=== PATIENT | female | born 1960 | race Two or more races ===

== ENCOUNTER 2021-09-03 10:39 | Inpatient (IN) | payer MEDICAID ==
[~2021-09-03] VITALS: Ht 165.1 cm; Wt 51.3 kg
[2021-09-03] MEDS ORDERED: SODIUM CHLORIDE 0.9% 1,000 ML IV ONE ×2 (11:15→12:45)
[2021-09-03] MEDS ORDERED: CALCIUM GLUCONATE 100MG/ML 10ML VIAL IV ONE (11:15)
[2021-09-03] MEDS ORDERED: GLUCAGON,HUMAN RECOMBINANT 1MG/VIAL IV ONE (11:15)
[2021-09-03 11:46] LABS: BASOPHILS % 3.5 % (0.0-2.0); EOSINOPHILS % 5.1 % (0.0-5.0); HEMATOCRIT. 33.8 % (36.0-48.0); HEMOGLOBIN. 11.5 g/dL (12.0-16.0); LYMPHOCYTES % 26.9 % (20.0-50.0); MEAN CORPUSCULAR HEMOGLOBIN 33.4 pg (28.0-32.0); MEAN PLATELET VOLUME 6.7 fl (7.4-10.4); MONOCYTES % 5.8 % (2.0-8.0); NEUTROPHILS % 58.7 % (40.0-76.0); PLATELET 332 x1000/uL (130-400); RED BLOOD CELL COUNT 3.45 mill/uL (4.2-5.4); RED CELL DISTRIBUTION WIDTH 12.5 % (11.6-14.6)
[2021-09-03 11:52] LABS: PROTHROMBIN TIME 10.8 sec (9.6-11.0)
[2021-09-03 12:00] LABS: CHLORIDE 112 mEq/L (98-107)
[2021-09-03] MEDS ORDERED: ATROPINE SULFATE 1MG/10ML SYR IV ONE (12:30)
[2021-09-04] VITALS (32 sets, daily range): BP systolic 106–164; BP diastolic 27–94
[2021-09-04] MEDS ORDERED: BUPR200T31 PO (03:35)
[2021-09-04] MEDS ORDERED: LITHTAB MT (03:35)
[2021-09-04] MEDS ORDERED: DULO30CA52 PO (03:35)
[2021-09-04] MEDS ORDERED: LOSA50TA41 PO (03:35)
[2021-09-04] MEDS ORDERED: LEVO100T9 PO (03:35)
[2021-09-04] MEDS ORDERED: ACET-2708 PO (03:39)
[2021-09-04] MEDS ORDERED: GABA-532 PO (03:39)
[2021-09-04] MEDS ORDERED: AMLO5TAB88 PO (03:39)
[2021-09-04] MEDS: LEVOTHYROXINE SODIUM 100MCG TABLET PO SCH (08:47)
[2021-09-04 13:08] LABS: CHLORIDE 110 mEq/L (98-107)
[2021-09-04] MEDS: ENOXAPARIN 40MG/0.4ML SYR SUBCUT SCH (13:47)
[2021-09-04 14:29] LABS: BASOPHILS % 2.6 % (0.0-2.0); EOSINOPHILS % 4.9 % (0.0-5.0); HEMATOCRIT. 40.1 % (36.0-48.0); HEMOGLOBIN. 13.4 g/dL (12.0-16.0); LYMPHOCYTES % 24.6 % (20.0-50.0); MEAN CORPUSCULAR HEMOGLOBIN 33.1 pg (28.0-32.0); MEAN CORPUSCULAR VOLUME 98.8 fL (81.0-99.0); MEAN PLATELET VOLUME 7.2 fl (7.4-10.4); MONOCYTES % 5.4 % (2.0-8.0); NEUTROPHILS % 62.5 % (40.0-76.0); PLATELET 419 x1000/uL (130-400); RED BLOOD CELL COUNT 4.06 mill/uL (4.2-5.4); RED CELL DISTRIBUTION WIDTH 12.7 % (11.6-14.6)
[2021-09-04] MEDS: AMLODIPINE 5MG TABLET PO SCH (15:54)
[2021-09-05] VITALS (13 sets, daily range): BP systolic 116–171; BP diastolic 65–108
[2021-09-05] MEDS: LEVOTHYROXINE SODIUM 100MCG TABLET PO SCH (06:30)
[2021-09-05] MEDS: AMLODIPINE 5MG TABLET PO SCH (08:46)
[2021-09-05] MEDS: ENOXAPARIN 40MG/0.4ML SYR SUBCUT SCH (08:47)
[2021-09-05] MEDS ORDERED: ACETAMINOPHEN 325MG TABLET PO PRN ×3 (11:45→12:30)
[2021-09-05] MEDS: ACETAMINOPHEN 325MG TABLET PO PRN (12:34)
[2021-09-06] VITALS (7 sets, daily range): BP systolic 113–152; BP diastolic 61–96
[2021-09-06] MEDS: ACETAMINOPHEN 325MG TABLET PO PRN ×4 (01:13→16:40)
[2021-09-06] MEDS: LEVOTHYROXINE SODIUM 100MCG TABLET PO SCH (08:13)
[2021-09-06] MEDS: AMLODIPINE 10MG TABLET PO SCH (08:14)
[2021-09-06] MEDS: ENOXAPARIN 40MG/0.4ML SYR SUBCUT SCH (08:15)
[2021-09-06] MEDS: BUPROPION HCL 150MG TABLET XL 24HR PO SCH (11:30)
[2021-09-06] MEDS: ARIPIPRAZOLE 5MG TABLET PO SCH (11:30)
[2021-09-06] MEDS: GABAPENTIN 300MG CAPSULE PO SCH ×2 (11:30→16:39)
[2021-09-06] MEDS ORDERED: BUPROPION HCL 75MG TABLET PO SCH (13:00)
[2021-09-06] MEDS: LITHIUM CARBONATE 150 MG CAPSULE PO SCH ×2 (14:06→16:39)
[2021-09-06] MEDS: RISPERIDONE 1MG TABLET PO SCH (14:06)
[2021-09-06] MEDS: CYCLOBENZAPRINE 10MG TABLET PO SCH ×2 (18:45→18:53)
[2021-09-06] MEDS ORDERED: OXYCODONE HCL 5MG TABLET PO PRN (18:45)
[2021-09-07 05:55] VITALS: BP 157/86
[2021-09-07] MEDS: CYCLOBENZAPRINE 10MG TABLET PO SCH ×2 (06:13→17:41)
[2021-09-07] MEDS: ACETAMINOPHEN 325MG TABLET PO PRN (06:23)
[2021-09-07 08:00] VITALS: BP 138/79
[2021-09-07] MEDS: GABAPENTIN 300MG CAPSULE PO SCH ×2 (09:29→17:41)
[2021-09-07] MEDS: LEVOTHYROXINE SODIUM 100MCG TABLET PO SCH (09:29)
[2021-09-07] MEDS: ARIPIPRAZOLE 5MG TABLET PO SCH (09:29)
[2021-09-07] MEDS: RISPERIDONE 1MG TABLET PO SCH (09:29)
[2021-09-07] MEDS: BUPROPION HCL 150MG TABLET XL 24HR PO SCH (09:29)
[2021-09-07] MEDS: AMLODIPINE 10MG TABLET PO SCH (09:31)
[2021-09-07] MEDS: LITHIUM CARBONATE 150 MG CAPSULE PO SCH ×2 (09:32→17:39)
[2021-09-07] MEDS: ENOXAPARIN 40MG/0.4ML SYR SUBCUT SCH (09:33)
[2021-09-07 12:00] VITALS: BP 115/74
[2021-09-07 16:00] VITALS: BP 115/64
[2021-09-07 18:00] VITALS: BP 118/62
[2021-09-08] MEDS: CYCLOBENZAPRINE 10MG TABLET PO SCH (06:32)
[2021-09-08 08:00] VITALS: BP 146/90
[2021-09-08] MEDS: LEVOTHYROXINE SODIUM 100MCG TABLET PO SCH (08:41)
[2021-09-08] MEDS: BUPROPION HCL 150MG TABLET XL 24HR PO SCH (08:41)
[2021-09-08] MEDS: LITHIUM CARBONATE 150 MG CAPSULE PO SCH (08:42)
[2021-09-08] MEDS: ARIPIPRAZOLE 5MG TABLET PO SCH (08:42)
[2021-09-08] MEDS: GABAPENTIN 300MG CAPSULE PO SCH (08:44)
[2021-09-08] MEDS: AMLODIPINE 10MG TABLET PO SCH (08:44)
[2021-09-08] MEDS: ENOXAPARIN 40MG/0.4ML SYR SUBCUT SCH (08:45)
[2021-09-08] MEDS: RISPERIDONE 1MG TABLET PO SCH (08:51)
[2021-09-08] MEDS ORDERED: NALOXONE HCL 0.4MG/ML VIAL IV PRN (15:45)
[2021-09-08 16:00] VITALS: BP 111/70
[2021-09-08 16:34] VITALS: BP 111/70
== END 2021-09-08 17:53 | disposition home or self-care (01) | DRG 812 ==
LOC: ER 10:39 → EDBEDREQ 14:34 → EDBEDREQTM 14:34 → EDBEDREQ 14:55 → MICUSO 20:20 → 5EST 22:10
PROVIDERS: ADMIT Internal Medicine; ATTEND Internal Medicine
DX: T44.7X1A Poisoning by beta-adrenoreceptor antagonists, accidental (unintentional), initial encounter (principal); I95.2 Hypotension due to drugs; F31.30 Bipolar disorder, current episode depressed, mild or moderate severity, unspecified; T46.1X1A Poisoning by calcium-channel blockers, accidental (unintentional), initial encounter; E04.2 Nontoxic multinodular goiter; R00.1 Bradycardia, unspecified; E89.0 Postprocedural hypothyroidism; I10 Essential (primary) hypertension; T46.5X1A Poisoning by other antihypertensive drugs, accidental (unintentional), initial encounter; Y92.89 Other specified places as the place of occurrence of the external cause; Z90.49 Acquired absence of other specified parts of digestive tract
CPT/HCPCS: 36415; 71045; 80048; 80053; 83605; 83735; 84484; 85025; 93005; 99291; J0461; J0610; J1610; J1650; J7030